=== PATIENT | male | born 1975 | race Hispanic/Latino ===

== ENCOUNTER 2021-08-01 05:25 | Emergency (ER) | payer SELFPAY ==
[2021-08-01] MEDS ORDERED: LORazepam 2 MG/ML VIAL ONE (05:46)
[2021-08-01] MEDS ORDERED: NA CHLORIDE 0.9% 1,000 ML ONE ×2 (05:46→06:50)
[2021-08-01 06:21] LABS: Absolute Lymphocytes (CBC) 2.2 K/uL (0.7-4.9); Hematocrit 48.1 % (39.6-49.0); Lymphocytes % 35.6 % (15.3-44.8); MPV 6.7 fL (7.6-11.3); RBC Red Blood Cell Count 4.84 M/uL (4.33-5.43)
[2021-08-01 06:39] LABS: Albumin 4.2 g/dL (3.4-5.0); Bilirubin Direct 0.4 mg/dL (0-0.2); Bilirubin Total 1.2 mg/dL (0.2-1.0); Magnesium 2.2 mg/dL (1.8-2.4); Potassium 3.7 mmol/L (3.5-5.1); Protein, Total 8.5 g/dL (6.4-8.2); Troponin High Sensitivity 3.6 pg/mL (<58.9)
[2021-08-01] MEDS ORDERED: MULTIVITAMINS 10 ML VIAL (INJ) IV ONE (06:50)
[2021-08-01] MEDS ORDERED: THIAMINE 200 MG/2 ML INJ ONE (06:50)
[2021-08-01] MEDS ORDERED: FOLIC ACID 5 MG/ML VIAL ONE (06:51)
[2021-08-01 07:24] LABS: Protime INR 1.03
--- NOTE | 2021-08-01 07:25 | EDPHYS ---
Physician Documentation [facility] Name: Olaf Will Age: 46 yrs Sex: Male : 1975 Arrival Date: 08/01/2021 Time: 05:26 Bed 2 Private MD: ED Physician Glenn Martel HPI: 08/01 06:20 This 46 yrs old Male presents to ER via EMS with complaints of Alcohol use. mh7 Meth use.. 06:20 The patient presents to the emergency department with anxiety, Drug abuse, a history of mh7 substance abuse, Type: beer, Meth. Onset: The symptoms/episode began/occurred today. 06:20 Past psychiatric history: Prior diagnosis: no previous psychiatric diagnosis known, mh7 Psychiatric medications include: none, Primary psychiatric physician: the patient does not have a primary psychiatric physician, the patient has not had a prior suicide gesture, the patient does not have a previous inpatient psychiatric history, the patient's last psychiatric treatment was none. Associated signs and symptoms: Pertinent positives; anxiety, chest pain, substance abuse, Pertinent negatives: abdominal pain, chills, delusions, depression, fever, hallucinations, headache, homicidal ideation, nausea, night sweats, palpitations, paranoia, shortness of breath, suicide ideation, tremor, vomiting. Severity of symptoms: At their worst the symptoms were moderate today, in the emergency department the symptoms have improved moderately. Historical: - Allergies: 05:31 No Known Allergies; as6 - Home Meds: 05:31 None [Active]; as6 - PMHx: 05:31 None; as6 - PSHx: 05:31 None; as6 - Immunization history:: Client reports receiving the 1st dose of the Covid vaccine. - Social history:: Smoking status: unknown. ROS: 06:20 Constitutional: Negative for fever, chills, and weight loss, Eyes: Negative for injury, mh7 pain, redness, and discharge, ENT: Negative for injury, pain, and discharge, Neck: Negative for injury, pain, and swelling, Respiratory: Negative for shortness of breath, cough, wheezing, and pleuritic chest pain, Abdomen/GI: Negative for abdominal pain, nausea, vomiting, diarrhea, and constipation, Back: Negative for injury and pain, : Negative for injury, bleeding, discharge, and swelling, MS/Extremity: Negative for injury and deformity, Skin: Negative for injury, rash, and discoloration, Neuro: Negative for headache, weakness, numbness, tingling, and seizure, Allergy/Immunology: Negative for hives, rash, and allergies, Endocrine: Negative for neck swelling, polydipsia, polyuria, polyphagia, and marked weight changes, Hematologic/Lymphatic: Negative for swollen nodes, abnormal bleeding, and unusual bruising. Exam: 06:20 Constitutional: This is a well developed, well nourished patient who is awake, alert, mh7 and in no acute distress. Head/Face: Normocephalic, atraumatic. Eyes: Pupils equal round and reactive to light, extra-ocular motions intact. Lids and lashes normal. Conjunctiva and sclera are non-icteric and not injected. Cornea within normal limits. Periorbital areas with no swelling, redness, or edema. Neck: Trachea midline, no thyromegaly or masses palpated, and no cervical lymphadenopathy. Supple, full range of motion without nuchal rigidity, or vertebral point tenderness. No Meningismus. Chest/axilla: Normal chest wall appearance and motion. Nontender with no deformity. No lesions are appreciated. Cardiovascular: Regular rate and rhythm with a normal S1 and S2. No gallops, murmurs, or rubs. Normal PMI, no JVD. No pulse deficits. Respiratory: Lungs have equal breath sounds bilaterally, clear to auscultation and percussion. No rales, rhonchi or wheezes noted. No increased work of breathing, no retractions or nasal flaring. Abdomen/GI: Soft, non-tender, with normal bowel sounds. No distension or tympany. No guarding or rebound. No evidence of tenderness throughout. Back: No spinal tenderness. No costovertebral tenderness. Full range of motion. Skin: Warm, dry with normal turgor. Normal color with no rashes, no lesions, and no evidence of cellulitis. MS/ Extremity: Pulses equal, no cyanosis. Neurovascular intact. Full, normal range of motion. Neuro: Awake and alert, GCS 15, oriented to person, place, time, and situation. Cranial nerves II-XII grossly intact. Motor strength 5/5 in all extremities. Sensory grossly intact. Cerebellar exam normal. Normal gait. 06:20 Psych: Awake, alert, with orientation to person, place and time. Behavior, mood, and affect are within normal limits. Vital Signs: 05:28 BP 104 / 75; Pulse 125; Resp 20 S; Temp 97.9(TE); Pulse Ox 98% on 2 lpm NC; Weight as6 72.57 kg (R); Height 5 ft. 8 in. (172.72 cm) (R); Pain 10/10; 06:07 BP 123 / 85; Pulse 93; Resp 19 S; Pulse Ox 97% on R/A; as6 06:52 BP 138 / 83; Pulse 104; Resp 18 S; Pulse Ox 100% on R/A; as6 07:15 BP 138 / 97; Pulse 89; Resp 20 S; Pulse Ox 100% ; jg9 05:28 Body Mass Index 24.33 (72.57 kg, 172.72 cm) as6 MDM: 07:22 Differential diagnosis: drug withdrawal. acute psychotic break, depression, psychosis mh7 secondary to non-compliance. Data reviewed: vital signs, nurses notes, lab test result(s), EKG, radiologic studies. Data interpreted: Pulse oximetry: on room air is 100 %. Interpretation: normal. Counseling: I had a detailed discussion with the patient and/or guardian regarding: the historical points, exam findings, and any diagnostic results supporting the discharge/admit diagnosis, the presence of at least one elevated blood pressure reading (>120/80) during this emergency department visit, lab results, radiology results, the need for outpatient follow up, to return to the emergency department if symptoms worsen or persist or if there are any questions or concerns that arise at home. Response to treatment: the patient's symptoms have resolved after treatment, the patient's blood pressure is in an acceptable range, mental status has returned to baseline, the patient no longer shows bradycardia, the patient is not short of breath, the patient is not tachycardic, the patient's pain is gone, the patient's temperature has normalized, the patient is now symptom free, patient is well hydrated. 07:24 Patient medically screened. 7 08/01 05:41 Order name: Basic Metabolic Panel; Complete Time: 06:41 as6 08/01 05:41 Order name: CBC with Diff; Complete Time: 06:41 as08/01 05:41 Order name: LFT's; Complete Time: 06:41 08/01 05:41 Order name: Magnesium; Complete Time: 06:41 08/01 05:41 Order name: NT PRO-BNP; Complete Time: 06:41 08/01 05:41 Order name: PT-INR 08/01 05:41 Order name: Troponin HS; Complete Time: 06:41 08/01 05:41 Order name: XRAY Chest (1 view) 08/01 05:41 Order name: ETOH Level; Complete Time: 06:41 08/01 05:41 Order name: UDS 08/01 07:37 Order name: Urine Dipstick-Ancillary ED08/01 05:41 Order name: EKG; Complete Time: 05:42 08/01 05:41 Order name: Cardiac monitoring; Complete Time: 05:49 08/01 05:41 Order name: EKG - Nurse/Tech; Complete Time: 05:50 08/01 05:41 Order name: IV Saline Lock; Complete Time: 05:50 08/01 05:41 Order name: Labs collected and sent; Complete Time: 05:50 08/01 05:41 Order name: O2 Per Protocol; Complete Time: 05:50 08/01 05:41 Order name: O2 Sat Monitoring; Complete Time: 05:50 as6 Administered Medications: 05:47 Drug: NS 0.9% 1000 ml Route: IV; Rate: 1 bolus; Site: right forearm; as6 06:51 Follow up: Response: No adverse reaction; IV Status: Completed infusion; IV Intake: as6 1000ml 05:47 Drug: Ativan (LORazepam) 1 mg Route: IVP; Site: right forearm; as6 06:51 Follow up: Response: No adverse reaction; RASS: Alert and Calm (0) as6 06:18 Drug: Ativan (LORazepam) 1 mg Route: IVP; Site: right forearm; as6 06:52 Follow up: Response: No adverse reaction; RASS: Alert and Calm (0) as6 06:51 Drug: Banana Bag - (NS 0.9% 1000 ml, foLIC Acid 1 mg, Thiamine 100 mg, Multivitamin 1 as6 amp) Route: IV; Rate: calculated rate; Site: right forearm; 07:56 Follow up: IV Status: Completed infusion; IV Intake: 1000ml jg9 Disposition Summary: 08/01/21 07:24 Discharge Ordered Location: Home [facility] Problem: new [facility] Symptoms: have improved [facility] Condition: Stable [facility] Diagnosis - Alcohol abuse with intoxication [facility] - Methamphetamine Use [facility] Followup: [facility] - With: Private Physician - When: 1 - 2 days - Reason: Worsening of condition, Recheck today's complaints, Continuance of care, Re-evaluation by your physician Discharge Instructions: - Discharge Summary Sheet [facility] - Alcohol Intoxication, [id number] [facility] - Methamphetamines Use Disorder [facility] - Alcohol Abuse and Dependence Information, Adult [facility] Forms: - Medication Reconciliation Form [facility] - Thank You Letter [facility] - Antibiotic Education [facility] - Prescription Opioid Use [facility] Signatures: Dispatcher [employer] Glenn Schreiber MD MD mh7 Rudy Cantu RN RN as6 Selma Walsh RN jg9 Corrections: (The following items were deleted from the chart) 06:46 06:43 The patient [place] to the emergency department [place] [id number]
--- NOTE | 2021-08-01 07:25 | ER ---
Nurse's Notes [facility] Name: Olaf Will Age: 46 yrs Sex: Male : 1975 Arrival Date: 08/01/2021 Time: 05:26 Bed 2 Private MD: Diagnosis: Alcohol abuse with intoxication;Methamphetamine Use Presentation: 08/01 05:28 Chief complaint: Patient states: "I'm having chest pain, my head is killing me, I've as6 been drinking the last few days and I did meth, I hate it, I hate the way it's making me feel" EMS states: called out for chest pain. Coronavirus screen: At this time, the client does not indicate any symptoms associated with coronavirus-19. Ebola Screen: No symptoms or risks identified at this time. Initial Sepsis Screen: Does the patient meet any 2 criteria? HR > 90 bpm. Does the patient have a suspected source of infection? No. Patient's initial sepsis screen is negative. Risk Assessment: Do you want to hurt yourself or someone else? Patient reports no desire to harm self or others. Onset of symptoms was August 01, 2021. Care prior to arrival: Medication(s) given: Normal saline infusion, IV initiated. 20 GA, in the right forearm. 05:28 Method Of Arrival: EMS: [facility] as6 05:28 Acuity: SHERITA 3 as6 05:33 Care prior to arrival: Medication(s) given: ASA, 81 mg, x 4, Nitroglycerin, zofran. as6 Historical: - Allergies: 05:31 No Known Allergies; as6 - Home Meds: 05:31 None [Active]; as6 - PMHx: 05:31 None; as6 - PSHx: 05:31 None; as6 - Immunization history:: Client reports receiving the 1st dose of the Covid vaccine. - Social history:: Smoking status: unknown. Screenin:51 Abuse screen: Denies threats or abuse. Denies injuries from another. Nutritional as6 screening: No deficits noted. Tuberculosis screening: No symptoms or risk factors identified. Fall Risk None identified. Assessment: 05:50 General: Appears distressed, slender, Behavior is anxious, restless, uncooperative. as6 Pain: Complains of pain in head and chest. Neuro: Billingsley Agitation-Sedation Scale (RASS): +2 Agitated Level of Consciousness is awake, alert, Oriented to person, place, time, situation, Reports dizziness, headache weakness. Cardiovascular: JVD is absent Patient's skin is warm and dry. Rhythm is sinus tachycardia. Respiratory: Respiratory effort is even, unlabored, Respiratory pattern is regular, symmetrical. 06:52 General: Behavior is calm, cooperative. Neuro: Billingsley Agitation-Sedation Scale as6 (RASS): 0 - Alert and Calm. 07:45 Reassessment: Patient and/or family updated on plan of care and expected duration. Pain jg9 level reassessed. Patient is alert, oriented x 3, equal unlabored respirations, skin warm/dry/pink. Patient states feeling better. Vital Signs: 05:28 BP 104 / 75; Pulse 125; Resp 20 S; Temp 97.9(TE); Pulse Ox 98% on 2 lpm NC; Weight as6 72.57 kg (R); Height 5 ft. 8 in. (172.72 cm) (R); Pain 10/10; 06:07 BP 123 / 85; Pulse 93; Resp 19 S; Pulse Ox 97% on R/A; as6 06:52 BP 138 / 83; Pulse 104; Resp 18 S; Pulse Ox 100% on R/A; as6 07:15 BP 138 / 97; Pulse 89; Resp 20 S; Pulse Ox 100% ; jg9 05:28 Body Mass Index 24.33 (72.57 kg, 172.72 cm) as6 ED Course: 05:26 Patient arrived in ED. as6 05:28 Rudy Cantu, RN is Primary Nurse. as6 05:31 Triage completed. as6 05:31 Arm band placed on. as6 05:51 Bed in low position. Call light in reach. Side rails up X 1. Client placed on as6 continuous cardiac and pulse oximetry monitoring. NIBP monitoring applied. 06:11 Glenn Martel MD is Attending Physician. 7 06:30 XRAY Chest (1 view) In Process Unspecified. EDMS 07:55 No provider procedures requiring assistance completed. IV discontinued. jg9 Administered Medications: 05:47 Drug: NS 0.9% 1000 ml Route: IV; Rate: 1 bolus; Site: right forearm; as6 06:51 Follow up: Response: No adverse reaction; IV Status: Completed infusion; IV Intake: as6 1000ml 05:47 Drug: Ativan (LORazepam) 1 mg Route: IVP; Site: right forearm; as6 06:51 Follow up: Response: No adverse reaction; RASS: Alert and Calm (0) as6 06:18 Drug: Ativan (LORazepam) 1 mg Route: IVP; Site: right forearm; as6 06:52 Follow up: Response: No adverse reaction; RASS: Alert and Calm (0) as6 06:51 Drug: Banana Bag - (NS 0.9% 1000 ml, foLIC Acid 1 mg, Thiamine 100 mg, Multivitamin 1 as6 amp) Route: IV; Rate: calculated rate; Site: right forearm; 07:56 Follow up: IV Status: Completed infusion; IV Intake: 1000ml jg9 Medication: 07:55 VIS not applicable for this client. jg9 Intake: 06:51 IV: 1000ml; Total: 1000ml. as6 07:56 IV: 1000ml; Total: 2000ml. jg9 Outcome: 07:24 Discharge ordered by . mh7 07:55 Discharged to home ambulatory. jg9 07:55 Condition: stable 07:55 Discharge instructions given to patient, Instructed on discharge instructions, Demonstrated understanding of instructions, follow-up care. 07:56 Patient left the ED. jg9 Signatures: Dispatcher [employer] Glenn Schreiber MD MD mh7 Rudy Cantu RN RN as6 Selma Walsh RN RN jg9
[2021-08-01 07:37] LABS: Urine Blood Negative (Negative); Urine Glucose Negative (Negative); Urine Protein Trace (Negative); Urine pH 7.5 (5.0-7.0)
[2021-08-01 08:05] LABS: Barbiturates NEGATIVE (NEGATIVE); Benzodiazepines NEGATIVE (NEGATIVE); Cocaine NEGATIVE (NEGATIVE); METHAMPHETAM POSITIVE (NEGATIVE); Methadone NEGATIVE (NEGATIVE); Opiates NEGATIVE (NEGATIVE); Phencyclidine NEGATIVE (NEGATIVE); THC Cannibis NEGATIVE (NEGATIVE)
[2021-08-01 08:07] VITALS: TEMP 97.9
[2021-08-01 08:10] VITALS: O2SAT 100
[2021-08-01 08:12] VITALS: BP 138/97
--- NOTE | 2021-08-01 08:16 | RAD REPORT ---
EXAM DESCRIPTION: [facility] Single View08/01/2021 6:28 am CLINICAL HISTORY: Chest pain COMPARISON: none FINDINGS: The lungs appear clear of acute infiltrate. The heart is normal size IMPRESSION: No acute abnormalities displayed
--- NOTE | 2021-08-01 13:32 | EKG ---
Test Date: 2021-08-01 Test Time: 05:24:57 Inside Steward/Stewardess: MEASUREMENT RESULTS: Intervals: Rate: 121 KS: 158 QRSD: 80 QT: 312 QTc: 443 Gepp: P: 79 KS: 158 QRS: 98 T: 74 INTERPRETIVE STATEMENTS: Sinus tachycardia Rightward axis Borderline ECG No previous ECG available for comparison Electronically Signed On 08-01-21 13:31:35 CDT by Eric Morales
== END 2021-08-01 07:56 | disposition home or self-care (01) ==
LOC: ER 05:25
DX: F10.129 Alcohol abuse with intoxication, unspecified (principal); F15.10 Other stimulant abuse, uncomplicated
CPT/HCPCS: 36415; 71045; 80048; 80076; 80307; 80320; 81003; 83735; 83880; 84484; 85025; 85610; 93005; 96361; 96365; 96375; 99284; J3411; J7030